=== PATIENT | female | born 1960 | race Hispanic/Latino ===

== ENCOUNTER → 2018-09-27 | Outpatient (CLI) | payer OTHER ==
[~2018-09-27] MED LIST: CYMBALTA30 MG; EFFEXOR XR 3737.5 MG; SEROQUEL25 MG PO
--- NOTE | 2018-09-27 17:06 | Diagnostic Imaging Report ---
EXAMINATION: CHEST 2 VIEWS INDICATION: Cough, sinus congestion ^[id number] ^[id number] ^COUGH COMPARISON: None FINDINGS: PA and lateral views TUBES and LINES: None. LUNGS: The lungs are mildly hyperinflated with coarse bronchial thickening. There is no evidence of pneumonia or pulmonary edema. PLEURA: No pleural effusion or pneumothorax. HEART AND MEDIASTINUM: The cardiomediastinal silhouette is unremarkable.. BONES AND SOFT TISSUES: The bones are diffusely demineralized. No focal osseous lesions. Soft tissues are unremarkable. UPPER ABDOMEN: No free air under the diaphragm. IMPRESSION: Mild peribronchial thickening suggestive of bronchitis. No infiltrates. Mild pulmonary hyperinflation. Signed by: Dr. Jhon Santana MD on 09/27/2018 5:03 PM
== END ==
LOC: RAD 16:30
PROVIDERS: ATTEND Family Medicine
DX: R05 Cough (principal)
CPT/HCPCS: 71046